=== PATIENT | male | born 1990 | race Caucasian/White ===

== ENCOUNTER 2017-05-14 02:24 | Inpatient (IN) | payer MEDICAID, OTHER ==
[2017-05-14] MEDS ORDERED: Charcoal 50 GM/Sorbitol* 50 GM/240 ML BTL PO ONE (02:53)
[2017-05-14] MEDS ORDERED: Charcoal 50 GM/Sorbitol* 50 GM/240 ML BTL ONE (03:08)
[2017-05-14 03:11] LABS: Hematocrit 48 % (42-52); Hemoglobin 15.9 g/dl (14.0-18.0); Mean Corpuscular HGB Conc 33 g/dl (31-36); Mean Corpuscular Hemoglobin 30 pg (27-31); Mean Corpuscular Volume 91 fL (80-94); Mean Platelet Volume 9 um3 (7.4-10.4); Red Blood Count 5.34 10^6/ul (4.0-5.4); Red Cell Distribution Width 14 % (10.5-15); White Blood Count 7.5 10^3/ul (3.5-10.8)
[2017-05-14 03:20] LABS: ALT 28 U/L (7-52); AST 28 U/L (13-39); Albumin 4.9 g/dL (3.2-5.2); Alkaline Phosphatase 72 U/L (34-104); Anion Gap 12 mmol/L (2-11); BUN/Creatinine Ratio 13.1 (8-20); Blood Urea Nitrogen 14 mg/dL (6-24); CO2 Carbon Dioxide 21 mmol/L (22-32); Chloride 106 mmol/L (101-111); EGFR African American 106.6 (>60); EGFR Non-African American 82.9 (>60); Glucose 114 mg/dL (70-100); Potassium 3.8 mmol/L (3.5-5.0); Sodium 139 mmol/L (133-145); Total Protein 7.9 g/dL (6.4-8.9)
[2017-05-14 03:24] LABS: Alcohol < 10 mg/dL (<10); Salicylate < 2.50 mg/dL (<30)
[2017-05-14 03:35] LABS: TSH (Thyroid Stimulating Horm) 0.89 mcIU/mL (0.34-5.60)
[2017-05-14 03:42] LABS: Acetaminophen 196 mcg/mL
[2017-05-14] MEDS ORDERED: Ondansetron INJ* 2 MG/ML VIAL IV ONE (04:54)
[2017-05-14] MEDS ORDERED: Ondansetron INJ* 2 MG/ML VIAL ONE (04:54)
--- NOTE | 2017-05-14 05:15 | HP ---
H&P (Free Text) History and Physical: PCP: none Date/Time of Evaluation: 05/14/2017 0500 CC: overdose HPI: Mr Rockwell is a 26YO homosexual male whose partner is leaving him prompting him to take "about 30" pills he thinks were Excedrin at midnight. He is unsure what the pills were as they were not in a bottle. Additionally, he smokes crack cocaine daily "as much as money allows", occasionally injects heroin & crystal meth. He decided to present for evaluation due to the onset of abdominal pain " a couple of hours" after the ingestion. He states the intent of the overdose was suicide. Last crack was done around 2200. He denies other complaints. He did express a desire to be discharged home, but was informed of the seriousness of his overdose and that I have removed his capacity. Denies HX suicidal ideation, gestures, or attempts. 4 hour post-ingestion acetaminophen level was 167. PMedHx polysubstance addiction Ambulatory Orders Blkfnrk-Dntsmkumamosz-Zmzyrsix [Excedrin Migraine] 1 tab PO 06/27/13 Allergies Bee Venom Allergy (Severe, Verified 07/15/16 14:59) Hives SEAFOOD Allergy (Severe, Uncoded 07/15/16 14:59) Vomiting PSurgHx denies SocHx: 1PPD cigarettes, minimal alcohol, recreational drugs as above; currently lives in a trailer with his ex-partner but is planning on moving home with his mother the 01 of June; full code status FamHx: denies ROS: as above, otherwise reviewed and all were negative Constitutional: NAD, normally developed, cachectic white male vitals: Vital Signs Temp 36.8 C 05/14/17 02:53 Pulse 68 05/14/17 05:30 Resp 18 05/14/17 05:30 BP 117/81 05/14/17 05:30 Pulse Ox 96 05/14/17 05:30 Intake & Output 05/13/17 05/13/17 05/14/17 11:59 23:59 11:59 Weight 68.039 kg HEENM: atraumatic; sclera/conjunctiva: non-icteric/clear; hearing: clinically intact; oropharynx: clear, mucosa moist Neck: soft tissue: non-tender; thyroid: normal Pulmonary: clear to auscultation bilaterally, good aeration, no accessory muscle use CV: RR/RR, normal S1S2, no carotid bruit, no jugular venous distention, 2+ B DP/ PT, no edema Abdominal: soft, non-distended, non-tender, no rebound/guarding/rigidity, normoactive bowel sounds, no hepatosplenomegaly or masses, no costovertebral angle tenderness Musculoskeletal: general: grossly intact; gait: stable Integumental: UE with track carnes; otherwise normal appearance and texture of exposed skin Psychiatric orientation: AA&O to PPS affect: calm mood: cooperative eye contact: good content: reliable responses: timely insight: fair to poor Testing: Lab Results 05/14/17 05/14/17 05/14/17 Range/Units 02:45 02:45 04:10 WBC 7.5 (3.5-10.8) 10^3/ul RBC 5.34 (4.0-5.4) 10^6/ul Hgb 15.9 (14.0-18.0) g/dl Hct 48 (42-52) % MCV 91 (80-94) fL MCH 30 (27-31) pg MCHC 33 (31-36) g/dl RDW 14 (10.5-15) % Plt Count 308 (150-450) 10^3/ul MPV 9 (7.4-10.4) um3 Neut % (Auto) 62.5 (38-83) % Lymph % (Auto) 29.6 (25-47) % Calvert % (Auto) 7.5 (1-9) % Eos % (Auto) 0.1 (0-6) % Baso % (Auto) 0.3 (0-2) % Absolute Neuts (auto) 4.7 (1.5-7.7) 10^3/ul Absolute Lymphs (auto) 2.2 (1.0-4.8) 10^3/ul Absolute Monos (auto) 0.6 (0-0.8) 10^3/ul Absolute Eos (auto) 0 (0-0.6) 10^3/ul Absolute Basos (auto) 0 (0-0.2) 10^3/ul Absolute Nucleated RBC 0.01 10^3/ul Nucleated RBC % 0.2 Sodium 139 (133-145) mmol/L Potassium 3.8 (3.5-5.0) mmol/L Chloride 106 (101-111) mmol/L Carbon Dioxide 21 L (22-32) mmol/L Anion Gap 12 H (2-11) mmol/L BUN 14 (6-24) mg/dL Creatinine 1.07 (0.67-1.17) mg/dL Est GFR ( Amer) 106.6 (>60) Est GFR (Non-Af Amer) 82.9 (>60) BUN/Creatinine Ratio 13.1 (8-20) Glucose 114 H (70-100) mg/dL Calcium 10.0 (8.6-10.3) mg/dL Total Bilirubin 0.80 (0.2-1.0) mg/dL AST 28 (13-39) U/L ALT 28 (7-52) U/L Alkaline Phosphatase 72 (34-104) U/L Total Protein 7.9 (6.4-8.9) g/dL Albumin 4.9 (3.2-5.2) g/dL Globulin 3.0 (2-4) g/dL Albumin/Globulin Ratio 1.6 (1-3) TSH 0.89 (0.34-5.60) mcIU/mL Salicylates < 2.50 (<30) mg/dL Acetaminophen 196 H* 167 H* mcg/mL Serum Alcohol < 10 (<10) mg/dL ECG, personally reviewed: sinus bradycardia rate 57, no ischemial, QTc 455 Impression: 26M presenting with toxic acetaminophen suicidal overdose DIAGNOSIS & PLAN Primary acetaminophen OD : 24 hour N-acetylcysteine protocol : trend acetaminophen level, INR, & LFTs : poison control consulted : supportive care suicide attempt : requires psychiatric evaluation once medically stable abdominal pain w/ blood tinged emesis : likely 2nd aspirin content : IV PPI : trend H&H Secondary polysubstance abuse : social science teacher consult : smoking cessation advised, low motivation Admission Rational: inpatient for N-acetylcysteine infusion for potentially life threatening OD DVTp: MELA Code Status: full
--- NOTE | 2017-05-14 05:19 | ED ---
I, Oh,Audra, scribed for Rivas Nagel MD on 05/14/17 at 0257 . Substance Abuse/Use - HPI Summary HPI Summary: This 26 y/o male presents to ED after OD on unknown amount of unspecified medications about 2 hours ago. Male friend present at bedside presents an open bottle of Motrin PM and white oblong pills, and states that they may be Excedrin. Positive SI. Pt is currently c/o abd pain. Pt denies any PMHx. Pt is current smoker and nondrinker. Plan of care involving charcoal tx and MHE is discussed with pt, and he is agreeable at this time. - History Of Current Complaint Chief Complaint: EDMentalHealth Stated Complaint: POSS MEDICATION OD Time Seen by Provider: 05/14/17 02:49 Hx Obtained From: Patient, Medical Records Overdose Characteristics: Oral Aggravating Factor(s): Nothing Alleviating Factor(s): Nothing Associated Signs And Symptoms: Intentional Ingestion, Other: - abd pain - Allergies/Home Medications Allergies/Adverse Reactions: Allergies Allergy/AdvReac Type Severity Reaction Status Date / Time Bee Venom Allergy Severe Hives Verified 07/15/16 14:59 SEAFOOD Allergy Severe Vomiting Uncoded 07/15/16 14:59 PMH/Surg Hx/FS Hx/Imm Hx Infectious Disease History: Denies: History Other Infectious Disease, Traveled Outside the [place] in Last 30 Days - Family History Known Family History: Positive: Other - no known FMH of urticaria - Social History Alcohol Use: None Hx Substance Use: No Substance Use Type: Reports: None Hx Tobacco Use: Yes Smoking Status (MU): Current Every Day Smoker Type: Cigarettes Amount Used/How Often: 1 PPD Review of Systems Negative: Fever Positive: Abdominal Pain Positive: Other - OD on possibly excedrin, motrin PM All Other Systems Reviewed And Are Negative: Yes Physical Exam Triage Information Reviewed: Yes Vital Signs On Initial Exam: Initial Vitals Temp Pulse Resp BP Pulse Ox 98.2 F 88 18 135/88 100 05/14/17 02:26 05/14/17 02:26 05/14/17 02:26 05/14/17 02:26 05/14/17 02:26 Vital Signs Reviewed: Yes Appearance: Positive: Well-Appearing, No Pain Distress Skin: Positive: Warm Head/Face: Positive: Normal Head/Face Inspection Eyes: Positive: LEIGH ENT: Positive: Hearing grossly normal Neck: Positive: Supple Respiratory/Lung Sounds: Positive: Clear to Auscultation, Breath Sounds Present Cardiovascular: Positive: RRR Abdomen Description: Positive: Nontender, Soft. Negative: Distended, Guarding Bowel Sounds: Positive: Present Musculoskeletal: Positive: Strength/ROM Intact Neurological: Positive: Sensory/Motor Intact, Alert, Oriented to Person Place, Time, Normal Gait Psychiatric: Positive: Anxious Diagnostics - Vital Signs Vital Signs Temp Pulse Resp BP Pulse Ox 05/14/17 02:26 98.2 F 88 18 135/88 100 - Laboratory Lab Results: Lab Results 05/14/17 05/14/17 05/14/17 Range/Units 02:45 02:45 04:10 WBC 7.5 (3.5-10.8) 10^3/ul RBC 5.34 (4.0-5.4) 10^6/ul Hgb 15.9 (14.0-18.0) g/dl Hct 48 (42-52) % MCV 91 (80-94) fL MCH 30 (27-31) pg MCHC 33 (31-36) g/dl RDW 14 (10.5-15) % Plt Count 308 (150-450) 10^3/ul MPV 9 (7.4-10.4) um3 Neut % (Auto) 62.5 (38-83) % Lymph % (Auto) 29.6 (25-47) % Claiborne % (Auto) 7.5 (1-9) % Eos % (Auto) 0.1 (0-6) % Baso % (Auto) 0.3 (0-2) % Absolute Neuts (auto) 4.7 (1.5-7.7) 10^3/ul Absolute Lymphs (auto) 2.2 (1.0-4.8) 10^3/ul Absolute Monos (auto) 0.6 (0-0.8) 10^3/ul Absolute Eos (auto) 0 (0-0.6) 10^3/ul Absolute Basos (auto) 0 (0-0.2) 10^3/ul Absolute Nucleated RBC 0.01 10^3/ul Nucleated RBC % 0.2 Sodium 139 (133-145) mmol/L Potassium 3.8 (3.5-5.0) mmol/L Chloride 106 (101-111) mmol/L Carbon Dioxide 21 L (22-32) mmol/L Anion Gap 12 H (2-11) mmol/L BUN 14 (6-24) mg/dL Creatinine 1.07 (0.67-1.17) mg/dL Est GFR ( Amer) 106.6 (>60) Est GFR (Non-Af Amer) 82.9 (>60) BUN/Creatinine Ratio 13.1 (8-20) Glucose 114 H (70-100) mg/dL Calcium 10.0 (8.6-10.3) mg/dL Total Bilirubin 0.80 (0.2-1.0) mg/dL AST 28 (13-39) U/L ALT 28 (7-52) U/L Alkaline Phosphatase 72 (34-104) U/L Total Protein 7.9 (6.4-8.9) g/dL Albumin 4.9 (3.2-5.2) g/dL Globulin 3.0 (2-4) g/dL Albumin/Globulin Ratio 1.6 (1-3) TSH 0.89 (0.34-5.60) mcIU/mL Salicylates < 2.50 (<30) mg/dL Acetaminophen 196 H* 167 H* mcg/mL Serum Alcohol < 10 (<10) mg/dL Result Diagrams: 05/14/17 02:45 05/14/17 02:45 Lab Statement: Any lab studies that have been ordered have been reviewed, and results considered in the medical decision making process. - EKG 0246 Cardiac Rate: Bradycardia EKG Rhythm: Sinus Bradycardia - 57 bpm Re-Evaluation - Re-Evaluation First Eval Re-Evaluation Time: 04:54 Change: Unchanged - results d/wpt Comment: Pt actively vomiting. aware and putting order for zofran ODT to control pt's n/v. Course/Dx - Course Assessment/Plan: This 26 y/o male presents to ED after overdosing on unspecified amount of unknown medication. Male friend present at bedside reports that pt may have OD on excedrin and motrin PM, and presents open bottle of motrin and other stray pills in ziploc bag. Pt was treated with charcoal. Positive SI and abd pain. EKG is noted with sinus bradycardia. Blood work indicates serum APAP of 196 at 0245 AM. Repeat APAP at 0410 AM is 167. Pt will be dispositioned after MHE. - Diagnoses Provider Diagnoses: Tylenol overdose - Physician Notifications Discussed Care Of Patient With: Jacinto Thapa Time Discussed With Above Provider: 05:13 Instructed by Provider To: Admit As Inpatient - Critical Care Time Critical Care Time: 30-74 min Discharge - Discharge Plan Condition: Fair Disposition: ADMITTED TO [facility] The documentation as recorded by the Eliud leung Soohyun accurately reflects the service I personally performed and the decisions made by Robe bui David, MD.
[2017-05-14] MEDS ORDERED: D5W IVPB ONE ×2 (06:00→08:00)
[2017-05-14] MEDS ORDERED: ACETYLCYSTEINE IVPB ONE ×2 (06:00→08:00)
[2017-05-14] MEDS ORDERED: Nicotine Inhaler* 10 MG AMP INH PRN (06:03)
[2017-05-14] MEDS ORDERED: Melatonin (NF) 3 MG TAB PO PRN (06:03)
[2017-05-14] MEDS ORDERED: Albuterol 2.5 MG/3 ML NEB.SOL* (0.083%) INH PRN (06:03)
[2017-05-14] MEDS ORDERED: Ondansetron INJ* 2 MG/ML VIAL IV PRN (06:03)
[2017-05-14] MEDS ORDERED: Mouth Piece, Nicotine* 1 EACH CARTRIDGE ONE (09:13)
--- NOTE | 2017-05-14 10:21 | PN ---
Subjective Date of Service: 05/14/17 Interval History: Patient seen and examined at bedside. Pt states that he feels well with the exception of bilateral leg cramps. He states that he get leg cramps when he withdraws. Pt reports he last used heroin and crack about 3 days ago. Prior to that he used daily as money allowed. Denies fever, chills, shortness of breath, chest discomfort, N/V/D. Cardiac Monitoring: Sinus abdulaziz to sinus rhythm, rate 50-60's. Family History: Unchanged from Admission Social History: Findings - Pt admits to using Heroin in addition to crack Past Medical History: Unchanged from Admission Objective Active Medications: Albuterol (Ventolin 2.5 Mg/3 Ml Neb.Amy*) 2.5 mg INH Q2H PRN Reason: SOB/ WHEEZING Acetylcysteine 2,800 mg/ (Dextrose) 514 mls @ 128.5 mls/hr IVPB ONCE ONE Stop: 05/14/17 11:59 Acetylcysteine 5,600 mg/ (Dextrose) 1,028 mls @ 64.25 mls/hr IVPB Q16H MIKO Melatonin (Melatonin (Nf)) 3 mg PO BEDTIME PRN; Protocol Reason: Sleep Nicotine (Nicotine Inhaler*) 10 mg INH Q2H PRN Reason: CRAVING Ondansetron HCl (Zofran Inj*) 4 mg IV Q6H PRN Reason: NAUSEA Pantoprazole Sodium (Protonix Iv*) 40 mg IV DAILY [facility] Vital Signs 05/14/17 05/14/17 05/14/17 05:30 05:50 06:00 Temperature Pulse Rate 68 Respiratory 18 21 21 Rate Blood Pressure 117/81 (mmHg) O2 Sat by Pulse 96 Oximetry 05/14/17 05/14/17 05/14/17 06:07 06:09 06:11 Temperature 99.0 F Pulse Rate 56 63 Respiratory 20 23 Rate Blood Pressure 140/83 140/83 (mmHg) O2 Sat by Pulse 96 97 Oximetry 05/14/17 05/14/17 05/14/17 06:40 07:00 07:56 Temperature 99.6 F Pulse Rate 55 Respiratory 21 18 Rate Blood Pressure 142/82 (mmHg) O2 Sat by Pulse 97 Oximetry 05/14/17 08:00 Temperature Pulse Rate 54 Respiratory 17 Rate Blood Pressure 145/83 (mmHg) O2 Sat by Pulse 95 Oximetry Oxygen Devices in Use Now: None Appearance: NAD, laying in bed Ears/Nose/Mouth/Throat: Mucous Membranes Moist Respiratory: Symmetrical Chest Expansion and Respiratory Effort, Clear to Auscultation Cardiovascular: NL Sounds; No Murmurs; No JVD, RRR Abdominal: NL Sounds; No Tenderness; No Distention Extremities: No Edema Skin: No Rash or Ulcers Neurological: Alert and Oriented x 3, NL Muscle Strength and Tone Lines/Tubes/Other Access: Clean, Dry and Intact Peripheral IV - site bengin Nutrition: Taking PO's Result Diagrams: 05/14/17 02:45 05/14/17 14:54 Microbiology and Other Data: Microbiology 05/14/17 06:30 Nasal Screen MRSA (PCR)(ZACHARIAH) - Final Nasal Mrsa Negative Assess/Plan/Problems-Billing Assessment: Mr. Rockwell is a 26 yo male with PMH significant for polysubstance abuse who presented to the emergency room after an intentional acetaminophen overdose. - Patient Problems (1) Tylenol overdose Code(s): T39.1X1A - POISONING BY 4-AMINOPHENOL DERIVATIVES, ACCIDENTAL, INIT SNOMED Code(s): 970170879 Comment: - Posion control consulted - Continue to trend acetaminophen level, INR and LFTs - Continue N-acetylcysteine protocol (2) Abdominal pain Code(s): R10.9 - UNSPECIFIED ABDOMINAL PAIN SNOMED Code(s): 47503472 Comment: - with blood tinged emesis in the ED - Resolved - Suspect related to ASA content in medication he took - Continue PPI - Follow HH (3) Polysubstance abuse Code(s): F19.10 - OTHER PSYCHOACTIVE SUBSTANCE ABUSE, UNCOMPLICATED SNOMED Code(s): 611247145 Comment: - Social work consult - Clonidine PRN withdrawal symptoms (4) DVT prophylaxis Code(s): OQG3301 - SNOMED Code(s): 255544332 Comment: - TEDs (5) Full code status Code(s): Z78.9 - OTHER SPECIFIED HEALTH STATUS SNOMED Code(s): 687585600 Status and Disposition: Inpatient. Psychiatric consult pending, suspect Pt will need an inpatient psychiatric admission.
[2017-05-14] MEDS ORDERED: NS 0.9% 1000 ML* 1,000 ML IV SCH (11:00)
[2017-05-14] MEDS: Pantoprazole IV* 40 MG IV SCH (12:04)
[2017-05-14] MEDS: cloNIDine TAB* 0.1 MG PO PRN ×2 (12:04→20:44)
[2017-05-14] MEDS: ACETYLCYSTEINE IVPB SCH (12:06)
[2017-05-14] MEDS: D5W IVPB SCH (12:06)
--- NOTE | 2017-05-14 14:44 | CONS ---
CONSULTATION REPORT: DATE OF CONSULT: 05/14/17 ATTENDING PHYSICIAN: Liyah Hodgson NP CONSULTING PHYSICIAN: Uriel Chowdary MD REASON FOR CONSULT: Suicidal medication overdose. PSYCHIATRIC HISTORY: The patient is a 26-year-old single homosexual white male with a history of ch ronic substance abuse who was admitted to the ICU early this morning after an intentional ingestion of approximately 30 tablets of over-the- counter Excedrin pain reliever pills. The patient had just been notified by his significant other that that person is ending the relationship and moving to [facility]. The patient tells me that he was upset and angry and took the pills in an impulsive fa shion. He does state that his intention at that time was to , but later he started developing ab dominal pain and immediately called an ambulance and was taken to the ED. His 4-hour postingestion acetaminophen level was elevated at 167. The patient admits that he smokes crack cocaine almost sally ly as well as injecting heroin and occasional crystal meth. By the time I reach him for psychiatric consultation, he is denying further suicidal ideations, in fact he is quite remorseful and embarras sed about the event. He is clearly in physical distress and states that these are manifestations of his acute drug withdrawal. When asked about what his plans are to move forward, he states that he w ould like to be discharged to his mother's care and return to live with her in [place], [place]. W alfred I ask about neurovegetative symptoms of depression or depressed mood leading up to the suicide a ttempt, he mostly denies this, but does indicate that his abuse of drugs is out of control, admaylin fink that his boyfriend is similarly an active substance abuser. I was able to reach the patient's mot her, her name is Sarah Rockwell in [place]. She corroborates the patient's story indicating that he had had close to year of clean time prior to moving to [place] and she was aware that he had trouble find ing continued outpatient substance abuse treatment in this area. She had suspected that the patient had resumed abusing drugs, but she was not totally certain until this event. At this point in time, she denies that the patient would benefit from psychiatric admission. Instead, she feels that he w ould heal best if he was to return home with her to [place]. She is willing to come to the hospital to pick him up and assist him in picking up his belongings and moving back to [place]. She is furt her willing to help him get into a substance abuse rehab in their hometown. PAST PSYCHIATRIC HISTORY: The patient has no history of prior psychiatric treatment, no history of psychiatric illness or hospitalizations. He has never taken psychiatric medications. He has no his tory of violence towards others. No history of traumatic brain injury. No history of exposure to t rauma. SUBSTANCE ABUSE HISTORY: The patient indicates that he does drink alcohol socially. He has been ab using cocaine for many years, typically smoking it in crack cocaine form. He has also been using in travenous heroin, states that he will occasionally use intravenous methamphetamine. The patient did attend an outpatient rehab in [place] for approximately 1 year, discontinuing this approximately 6 months ago when he decided to move back to [place], [place]. His longest period of sobriety was for approximately 6 months and this was 1 year ago when he was in rehab. PAST MEDICAL HISTORY: Noncontributory. MEDICATIONS: He is on no current medications prior to admission. ALLERGIES: He does have a PENICILLIN allergy, which gives him hives. FAMILY HISTORY: His father smokes cannabis. All other history of substance abuse and mental health problems in the family are denied. SOCIAL HISTORY: The patient was born and raised in [place]. He is a high school graduate. His par ents apparently broke up when he was approximately 4 years old. His parents still reside in [place]. He does have a 28-year-old older sister. The patient is not congregation or spiritual. He self-iden tifies as homosexual and has been in a monogamous relationship with his boyfriend for the past 1 yea r. He has no history of sexually transmitted diseases. 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 He has been living in [place] for approximately 6 months in a trailer with his boyfriend. He has no history of service. He does have a history of 1 arrest for driving under the influence of narcotic drugs at the age of 20. He has not served any significant nursing home time. MENTAL STATUS EXAM: The patient is an extremely undernourished white male wearing patient gown who is sitting up in his hospital bed, attached to IVs as well as O2 saturation monitors. He is calm, c ooperative, pleasant. Speech appears to have a normal rate, tone, and volume. Mood is anxious with a constricted affect. Thought process is linear and goal directed. Thought content is mostly soma tic as he complains bitterly of cramping in his legs secondary to acute drug withdrawal. He denies suicidal or homicidal ideations. He denies auditory or visual hallucinations. Insight and judgemen t is fair given his willingness to follow up with outpatient drug and alcohol rehab. Cognitively, urmila mcgovern is awake and alert with what would appear to be an average intellect. DIAGNOSES: Morrice I: Cocaine-induced mood disorder, cocaine use disorder, opioid use disorder. Morrice I I: Deferred. ASSESSMENT: The patient is a 26-year-old single homosexual white male with a history of chronic kavin g abuse who is currently admitted to the ICU following an intentional overdose on approximately 30 t ablets of [id number] Excedrin pain reliever. The patient states that this was a suicide attem pt; however, he is now grateful that it was unsuccessful. He is remorseful and embarrassed about th is episode. The patient contracts for safety and feels that [facility]. At this point, he is seeking to return to [place] with his mother in order to get reestablished in his former outpatient substance abuse treatment program. The patient's mother, Ruiz amezcua, has been spoken with and she is in support of a plan to discharge once he is medically stable, so that she can bring him home with her. The patient continues to receive medical care for his recent overdose as well as treatment for acute drug withdrawal. RECOMMENDATIONS: We recommend that the primary team continue to treat his substance withdrawal as w ell as his elevated acetaminophen levels. The patient would not benefit from inpatient psychiatric hospitalization, but he would greatly benefit from outpatient substance abuse treatment, which he is in agreement with. His mother has expressed an interest that the primary team contact her well marlin luca of his discharge time, so that she can make arrangements to drive to [place] to pick him up directl y from the hospital and transport him home to [place]. Psychiatry is in support of this plan as aaron mcneil [id number]/[facility] #: [id number]
[2017-05-14 15:24] LABS: Albumin 3.9 g/dL (3.2-5.2); BUN/Creatinine Ratio 12.7 (8-20); Calcium 9.1 mg/dL (8.6-10.3); EGFR African American 103.3 (>60); EGFR Non-African American 80.3 (>60); Globulin 2.5 g/dL (2-4); Potassium 3.2 mmol/L (3.5-5.0); Total Protein 6.4 g/dL (6.4-8.9)
[2017-05-14 20:26] LABS: Magnesium 2.3 mg/dL (1.9-2.7)
[2017-05-14] MEDS: Potassium Chlor TAB* 20 MEQ TAB.ER PO SCH ×2 (20:39→23:41)
[2017-05-15 02:03] LABS: Hematocrit 41 % (42-52); Hemoglobin 13.8 g/dl (14.0-18.0)
[2017-05-15 02:21] LABS: ALT 17 U/L (7-52); AST 13 U/L (13-39); Albumin 3.5 g/dL (3.2-5.2); Alkaline Phosphatase 52 U/L (34-104); Anion Gap 6 mmol/L (2-11); BUN/Creatinine Ratio 11.2 (8-20); Blood Urea Nitrogen 10 mg/dL (6-24); CO2 Carbon Dioxide 24 mmol/L (22-32); Calcium 8.6 mg/dL (8.6-10.3); Chloride 108 mmol/L (101-111); EGFR African American 131.9 (>60); EGFR Non-African American 102.5 (>60); Globulin 2.1 g/dL (2-4); Glucose 114 mg/dL (70-100); Potassium 3.6 mmol/L (3.5-5.0); Sodium 138 mmol/L (133-145); Total Protein 5.6 g/dL (6.4-8.9)
[2017-05-15 02:55] LABS: Acetaminophen < 15 mcg/mL
[2017-05-15] MEDS: cloNIDine TAB* 0.1 MG PO PRN ×2 (03:23→13:31)
[2017-05-15 03:54] LABS: Urine Bilirubin Negative (Negative); Urine Glucose Negative (Negative); Urine Nitrite Negative (Negative)
[2017-05-15 04:03] LABS: Benzodiazepine Urine Screen None Detected (None Detect)
[2017-05-15] MEDS: D5W IVPB SCH (04:07)
[2017-05-15] MEDS: ACETYLCYSTEINE IVPB SCH (04:07)
[2017-05-15] MEDS: Pantoprazole IV* 40 MG IV SCH (10:12)
[2017-05-15 10:20] VITALS: BP 88/72
--- NOTE | 2017-05-15 15:15 | DS ---
DISCHARGE SUMMARY: DATE OF ADMISSION: 05/14/17 DATE OF DISCHARGE: 05/15/17 PRIMARY CARE PROVIDER: None. DISCHARGING PROVIDER: EDILIA Cerda SUPERVISING PHYSICIAN: Abhijit Peck MD.* (DICTATED BY EDILIA CERDA) PRIMARY DISCHARGE DIAGNOSES: 1. Intentional overdose with acetaminophen. 2. Acetaminophen toxicity without significant liver impairment. 3. Abdominal pain - resolved. SECONDARY DISCHARGE DIAGNOSIS: Polysubstance abuse. DISCHARGE MEDICATIONS: None. MEDICATION CHANGES: Discontinue Excedrin use. HOSPITAL IMAGING: EKG demonstrates a sinus rhythm without acute ischemic changes. HOSPITAL COURSE: This is a 26-year-old gentleman with polysubstance use history and admitted daily crack cocaine use, who presented to the emergency department via ambulance after an intentional overdose and complaints of abdominal pain. The patient was admittedly intoxicated at the time of overdose and had just learned that his partner had plans to leave him and was moving out of [facility] and he took approximately 30 Excedrin pills. He started developing abdominal pain a couple of hours after his ingestion and subsequently called an ambulance. When he reached the emergency department, his initial CBC was unremarkable, INR was 1.5, transaminases were all within normal limits. He had a mild anion gap acidosis noted. Toxicology screen was positive for acetaminophen with initial levels measuring 196. Additional screen was also positive for cocaine and otherwise negative including for salicylates. The patient was subsequently admitted to the hospital and started on N- acetylcysteine treatment. Poison Control was contacted. The patient received 1 dose of N-acetylcysteine. His followup chemistry panel showed no elevation in transaminases or other evidence of synthetic liver dysfunction. Recommendation from Poison Control was to discontinue treatment. His acetaminophen levels improved to undetectable within approximately 24 hours of admission. The patient was evaluated by psychiatrist, Dr. Chowdary. It seems like the situation surrounding his ingestion was an impulsive decision. He has no psychiatric history and Dr. Chowdary spoke with the patient's mother. He has had a history of sobriety for about 1 year prior to moving to [place], but the partner that he was involved with also had a significant substance abuse problem as well. Dr. Chowdary did not feel that he would benefit from a psychiatric admission and that this attempt at suicide was impulsive without any other depressive features and the patient quickly was remorseful and called an ambulance for help. For these reasons, he did not feel that further psychiatric treatment was indicated, but certainly treatment for his polysubstance abuse would be of most benefit. The patient did not express any additional suicidal ideation during his time in the hospital and his complaints of abdominal pain resolved and he was able to maintain a regular diet without nausea, vomiting, or diarrhea. DISPOSITION AND FOLLOWUP: The patient is being discharged to his mother's care with plans to move back to [place]. He will pursue substance abuse treatment upon returning to [place]. He was recommended discontinuing Excedrin use. No discharge medications necessary. EDILIA CERDA [id number]/[facility] #: [id number] ROBERT
== END 2017-05-15 14:05 | disposition home or self-care (01) | DRG 812 ==
LOC: ED 02:24 → ICU 05:19 → MED 23:13
PROVIDERS: ADMIT Hospitalist; ATTEND Hospitalist
DX: T39.1X2A Poisoning by 4-Aminophenol derivatives, intentional self-harm, initial encounter (principal); F11.10 Opioid abuse, uncomplicated; F14.14 Cocaine abuse with cocaine-induced mood disorder; Y92.9 Unspecified place or not applicable; X58.XXXA Exposure to other specified factors, initial encounter; R10.9 Unspecified abdominal pain; F17.210 Nicotine dependence, cigarettes, uncomplicated; E87.6 Hypokalemia; Z91.013 Allergy to seafood; Z79.1 Long term (current) use of non-steroidal anti-inflammatories (NSAID); Z91.030 Bee allergy status; Z81.3 Family history of other psychoactive substance abuse and dependence
CPT/HCPCS: 36415; 80053; 80307; 80320; 80329; 81003; 83735; 84443; 85014; 85018; 85025; 85610; 87641; 93005; A9270-GY; G0480; J0132; J2405; J7060